=== PATIENT | male | born 1985 | race Caucasian/White ===

== ENCOUNTER 2017-10-05 10:50 | Emergency (ER) | payer OTHER, BC ==
[2017-10-05] MEDS ORDERED: ONDANSETRON HCL INJ/PF 4 MG/2 ML SDV IV ONE (11:43)
--- NOTE | 2017-10-05 11:43 | ER Document Report ---
ED Medical Screen (RME) - General Chief Complaint: Vomiting Stated Complaint: ABDOMINAL PAIN Time Seen by Provider: 10/05/17 11:40 Notes: I entered the examining room and the patient was laying on the floor. He says that his abdomen hurts too much to sit up in the wheelchair. He has been having pain in his abdomen for the past couple of months, daily basis, comes and goes. He is under the care of the OR clinic and has been diagnosed with IBS and has had 2 surgeries for rectal prolapse. It is often located in the same area as today, in the right lower abdomen. He is also vomiting 3 or 4 times. Says he has had blood in his vomitus which is new for him. Says he is feeling very weak and cannot stand because of the weakness. Last bowel movement was 6 PM last evening. Says he has had a fever as well. Also complaining of an extreme headache. Patient has a history of TBI and a stent placed in a brain aneurysm. Also diagnosed with anxiety, depression, and PTSD. Abdomen examined while patient laying on his left side on the floor. I do not detect any specific severe tenderness anywhere in his abdomen. TRAVEL OUTSIDE OF THE [place] IN LAST 30 DAYS: No - Related Data Allergies/Adverse Reactions: almond oil [[place] Oil] Allergy (Verified 10/05/17 10:51) Past Medical History Renal/ Medical History: Denies: Hx Peritoneal Dialysis Past Surgical History: Reports: Hx Neurologic Surgery - Stent placed, Hx Orthopedic Surgery - left ankle, thumb, Hx Rectal Surgery - August 2014 - Immunizations Hx Diphtheria, Pertussis, Tetanus Vaccination: Yes Physical Exam - Vital signs Vitals: Temp Pulse Resp BP Pulse Ox 98.6 F 107 H 22 H 113/64 100 10/05/17 10:57 10/05/17 10:57 10/05/17 10:57 10/05/17 10:57 10/05/17 10:57 Course - Vital Signs Vital signs: Temp Pulse Resp BP Pulse Ox 98.6 F 107 H 22 H 113/64 100 10/05/17 10:57 10/05/17 10:57 10/05/17 10:57 10/05/17 10:57 10/05/17 10:57 Doctor's Discharge - Discharge Referrals: [facility] LOPEZ, [facility] [Primary Care Provider] - Follow up as needed
[2017-10-05] MEDS: NORMAL SALINE 1000 ML 1,000 ML IV PRN ×2 (12:14→12:15)
[2017-10-05] MEDS ORDERED: ACETAMINOPHEN 325 MG TABLET ONE (12:23)
[2017-10-05] MEDS ORDERED: ACETAMINOPHEN 325 MG TABLET PO ONE ×2 (12:28→15:02)
[2017-10-05] MEDS ORDERED: MORPHINE SULFATE 10 MG/ML INJ IV ONE (12:36)
[2017-10-05 12:41] LABS: ABSOLUTE LYMPHOCYTES (AUTO) 0.4 10^3/uL (0.5-4.7); ABSOLUTE MONOCYTES (AUTO) 0.7 10^3/uL (0.1-1.4); ABSOLUTE NEUT (AUTO) 6.6 10^3/uL (1.7-8.2); BASOPHILS % (AUTO) 0.3 % (0-2); EOSINOPHILS % (AUTO) 0.6 % (0-6); HEMATOCRIT 42.3 % (37.9-51.0); HEMOGLOBIN 14.7 g/dL (13.5-17.0); LYMPHOCYTES % (AUTO) 5.7 % (13-45); MEAN CORPUSCULAR HEMOGLOBIN 30.9 pg (27.0-33.4); MEAN CORPUSCULAR HGB CONC 34.7 g/dL (32.0-36.0); MEAN CORPUSCULAR VOLUME 89 fl (80-97); MONOCYTES % (AUTO) 8.9 % (3-13); PLATELET COUNT 211 10^3/uL (150-450); RED BLOOD COUNT 4.74 10^6/uL (4.35-5.55); RED CELL DISTRIBUTION WIDTH 12.7 % (11.5-14.0); SEGMENTED NEUTROPHILS % (AUTO) 84.5 % (42-78); TOTAL CELLS COUNTED % (AUTO) 100 %; WHITE BLOOD COUNT 7.8 10^3/uL (4.0-10.5)
[2017-10-05 13:02] LABS: ALANINE AMINOTRANSFERASE 49 U/L (21-72); ALBUMIN 4.2 g/dL (3.5-5.0); ALKALINE PHOSPHATASE 87 U/L (38-126); ANION GAP 14 (5-19); ASPARTATE AMINO TRANSFERASE 25 U/L (17-59); BILIRUBIN,DIRECT 0.2 mg/dL (0.0-0.4); BILIRUBIN,TOTAL 0.5 mg/dL (0.2-1.3); BLOOD UREA NITROGEN 22 mg/dL (7-20); CALCIUM 9.6 mg/dL (8.4-10.2); CARBON DIOXIDE 22 mmol/L (22-30); CHLORIDE 105 mmol/L (98-107); GLUCOSE 121 mg/dL (75-110); LIPASE 73.7 U/L (23-300); POTASSIUM 4.3 mmol/L (3.6-5.0); SODIUM 140.8 mmol/L (137-145)
--- NOTE | 2017-10-05 13:10 | ER Document Report ---
ED GI/ - General Chief Complaint: Vomiting Stated Complaint: ABDOMINAL PAIN Time Seen by Provider: 10/05/17 11:40 Notes: Patient is a 32-year-old male with past medical history of rectal prolapse repair 3, last performed in [place] 3 years ago, as well as around 10 years of some irritable bowel syndrome diagnosed at the [facility] who presents today with the onset last night of some body aches, temperature 101, and some abdominal pain. This morning the patient had multiple bouts of nonbilious vomiting. There was some blood specks in the vomit. No obvious black or bloody stools. Patient states the pain is now mostly to the right lower quadrant where it normally is located. Patient denies any aggravating or relieving factors. He denies any radiation. He denies any dysuria or testicular pain. Patient did take Tylenol this morning. TRAVEL OUTSIDE OF THE [place] IN LAST 30 DAYS: No - HPI Patient complains to provider of: Abdominal pain, Other - See above Timing/Duration: Gradual Quality of pain: Achy Severity in ED: Moderate Pain Level: 2 Location: Other - See above Sexual history: Active Associated symptoms: Other - See above Exacerbated by: Denies Relieved by: Denies Similar symptoms previously: Yes Recently seen / treated by doctor: Yes - Related Data Allergies/Adverse Reactions: almond oil [[place] Oil] Allergy (Verified 10/05/17 10:51) Past Medical History - General Information source: Patient - Social History Smoking Status: Never Smoker Cigarette use (# per day): No Chew tobacco use (# tins/day): No Smoking Education Provided: No Frequency of alcohol use: None Family History: Reviewed & Not Pertinent Patient has suicidal ideation: No Patient has homicidal ideation: No Renal/ Medical History: Denies: Hx Peritoneal Dialysis Past Surgical History: Reports: Hx Neurologic Surgery - Stent placed, Hx Orthopedic Surgery - left ankle, thumb, Hx Rectal Surgery - August 2014 - Immunizations Hx Diphtheria, Pertussis, Tetanus Vaccination: Yes Review of Systems - Review of Systems Constitutional: Fever EENT: denies: Eye discharge, Nose discharge Cardiovascular: Syncope, Dizziness. denies: Chest pain, Palpitations Respiratory: denies: Short of breath Gastrointestinal: denies: Vomiting Genitourinary: denies: Dysuria Musculoskeletal: denies: Leg swelling Skin: Other - no hives. denies: Rash Neurological/Psychological: Other - no slurred speech -: Yes All other systems reviewed and negative Physical Exam - Vital signs Vitals: Temp Pulse Resp BP Pulse Ox 98.6 F 107 H 22 H 113/64 100 10/05/17 10:57 10/05/17 10:57 10/05/17 10:57 10/05/17 10:57 10/05/17 10:57 Notes: Reviewed vital signs and nursing note as charted by RN. CONSTITUTIONAL: Alert and oriented and responds appropriately to questions. Well -appearing; well-nourished HEAD: Normocephalic; atraumatic EYES: PERRL; sclerae non-icteric CARD: Regular rate and rhythm; no murmurs RESP: Normal chest excursion without splinting or tachypnea; breath sounds clear and equal bilaterally ABD/GI: Normal bowel sounds; non-distended; soft, tender to palpation mostly to the lower quadrant of the right abdomen but no rebound or guarding. No palpable masses GI/: Patient has no testicular pain or swelling, no inguinal masses present. The examination shows no obvious gross blood. Hemoccult has been sent. I do not detect any obvious palpable prolapse present BACK: The back appears normal and is non-tender to palpation, there is no CVA tenderness EXT: No edema SKIN: No acute lesions noted NEURO: Moves all extremities equally; Motor and sensory function intact PSYCH: The patient's mood and manner are appropriate. Grooming and personal hygiene are appropriate. Course - Re-evaluation Re-evalutation: 10/05/17 13:09 Given the above history and physical examination in this complicated medical patient, I will order an influenza, basic labs, x-ray of the chest given hematemesis as well as a CT scan of the abdomen and pelvis to evaluate for any abdominal pathology. A liter of fluid and pain medications have been provided. 10/05/17 14:07 Labs and Hemoccult is recorded. X-ray as recorded. Hemoccult is negative. CT scan of the abdomen and pelvis shows no acute abnormalities. Influenza is negative. 10/05/17 14:14 Patient is sleeping in no acute distress. Examination is improved when awoken. Given the above history and physical examination, with laboratory and imaging as recorded, we will have the patient follow-up with his gastroenterology/[facility] specialist and provide a course of Phenergan. Strict return precautions have been explained. - Vital Signs Vital signs: Temp Pulse Resp BP Pulse Ox 98.6 F 107 H 22 H 113/64 100 10/05/17 10:57 10/05/17 10:57 10/05/17 10:57 10/05/17 10:57 10/05/17 10:57 - Laboratory Result Diagrams: 10/05/17 12:13 10/05/17 12:13 Laboratory results interpreted by me: 10/05/17 10/05/17 12:13 12:13 Seg Neutrophils % 84.5 H Lymphocytes % 5.7 L Absolute Lymphocytes 0.4 L BUN 22 H Glucose 121 H Discharge - Discharge Clinical Impression: Vomiting and diarrhea Abdominal pain Qualifiers: Abdominal location: right lower quadrant Qualified Code(s): R10.31 - Right lower quadrant pain Hematemesis Qualifiers: Nausea presence: with nausea Qualified Code(s): K92.0 - Hematemesis Fever Qualifiers: Fever type: unspecified Qualified Code(s): R50.9 - Fever, unspecified Condition: Good Disposition: HOME, SELF-CARE Prescriptions: Promethazine HCl [Phenergan 25 mg Tablet] 25 mg PO Q6H PRN #15 tablet PRN Reason: Referrals: [facility]OPE[facility] [Primary Care Provider] - Follow up as needed
[2017-10-05] MEDS ORDERED: PROMETHAZINE HCL INJ 25 MG/1 ML VIAL IV ONE (13:27)
--- NOTE | 2017-10-05 13:29 | RADIOLOGY REPORT (SQ) ---
EXAM DESCRIPTION: CHEST 2 VIEWS COMPLETED DATE/TIME: 10/05/2017 1:15 pm REASON FOR STUDY: 13hw; vomiting COMPARISON: None. EXAM PARAMETERS: NUMBER OF VIEWS: two views TECHNIQUE: Digital Frontal and Lateral radiographic views of the chest acquired. RADIATION DOSE: NA LIMITATIONS: none FINDINGS: LUNGS AND PLEURA: No opacities, masses or pneumothorax. No pleural effusion. MEDIASTINUM AND HILAR STRUCTURES: No masses or contour abnormalities. HEART AND VASCULAR STRUCTURES: Heart normal size. No evidence for failure. BONES: No acute findings. HARDWARE: None in the chest. OTHER: No other significant finding. IMPRESSION: NO ACUTE RADIOGRAPHIC FINDING IN THE CHEST. TECHNICAL DOCUMENTATION: JOB ID: [id number] [employer]- All Rights Reserved Reading location - IP/workstation name: [email or web address]
--- NOTE | 2017-10-05 13:41 | RADIOLOGY REPORT (SQ) ---
EXAM DESCRIPTION: CT ABD/PELVIS WITH IV ONLY COMPLETED DATE/TIME: 10/05/2017 1:10 pm REASON FOR STUDY: 13Hw; abdominal pain; h/o rectal prolapse COMPARISON: None. TECHNIQUE: CT scan of the abdomen and pelvis performed using helical scanning technique with dynamic intravenous contrast injection. No oral contrast. Images reviewed with lung, soft tissue, and bone windows. Reconstructed coronal and sagittal MPR images reviewed. Delayed images for evaluation of the urinary system also acquired. All images stored on PACS. All CT scanners at this facility use dose modulation, iterative reconstruction, and/or weight based d osing when appropriate to reduce radiation dose to as low as reasonably achievable (ALARA). [facility]: Dose Right [facility]: CareDose [facility]: Dose Right [facility]: Teradose 4D [facility]: [employer] CONTRAST TYPE AND DOSE: Not recorded by technologist. RENAL FUNCTION: None required. The patient is less than 50 years old. RADIATION DOSE: CT Rad equipment meets quality standard of care and radiation dose reduction techniq ues were employed. CTDIvol: 6.4 - 8.9 mGy. DLP: 841 mGy-cm.. LIMITATIONS: None. FINDINGS: LOWER CHEST: No significant findings. No nodules or infiltrates. LIVER: 3 low-density lesions, 1 in the medial segment of the left lobe, 2 in the right lobe measuring up to about 1.5 cm. Not visualized on delayed imaging. Liver MRI followup is recommended. SPLEEN: Normal size. No focal lesions. PANCREAS: No masses. No significant calcifications. No adjacent inflammation or peripancreatic fluid collections. Pancreatic duct not dilated. GALLBLADDER: No identified stones by CT criteria. No inflammatory changes to suggest cholecystitis. ADRENAL GLANDS: No significant masses or asymmetry. RIGHT KIDNEY AND URETER: Cortical cyst. No solid masses. No significant calcifications. No hydro nephrosis or hydroureter. LEFT KIDNEY AND URETER: No solid masses. No significant calcifications. No hydronephrosis or hydr oureter. AORTA AND VESSELS: No aneurysm. No dissection. Renal arteries, SMA, celiac without stenosis. RETROPERITONEUM: No retroperitoneal adenopathy, hemorrhage or masses. BOWEL AND PERITONEAL CAVITY: No masses or inflammatory changes. No free fluid or peritoneal masses. APPENDIX: Not visualized. PELVIS: No mass. No free fluid. Normal bladder. ABDOMINAL WALL: No masses. No hernias. BONES: No significant or acute findings. OTHER: No other significant finding. IMPRESSION: No acute findings. Low-density lesions in the liver, probably benign hemangiomas, howev er follow-up recommended. TECHNICAL DOCUMENTATION: JOB ID: [id number] Quality ID # [id number]: Final reports with documentation of one or more dose reduction techniques (e.g., Au tomated exposure control, adjustment of the mA and/or kV according to patient size, use of iterative reconstruction technique) 2010 [employer]- All Rights Reserved Reading location - IP/workstation name: [email or web address]
[2017-10-05 14:00] LABS: A TYPE INFLUENZA AG NEGATIVE (NEGATIVE); B INFLUENZA AG NEGATIVE (NEGATIVE)
[2017-10-05] MEDS ORDERED: NORMAL SALINE 1000 ML 1,000 ML IV ONE (14:54)
[2017-10-05 16:00] LABS: APPEARANCE,URINE CLEAR; BILIRUBIN,URINE NEGATIVE (NEGATIVE); COLOR,URINE YELLOW; GLUCOSE, URINE NEGATIVE (NEGATIVE); KETONES,URINE 20 mg/dL (NEGATIVE); LEUKOCYTE ESTERASE,URINE NEGATIVE (NEGATIVE); NITRITE,URINE NEGATIVE (NEGATIVE); PROTEIN,URINE NEGATIVE (NEGATIVE); URINE SPECIFIC GRAVITY 1.046; UROBILINOGEN,URINE NEGATIVE mg/dL (<2.0)
[2017-10-05 18:46] VITALS: BP 103/50
== END 2017-10-05 17:40 | disposition home or self-care (01) ==
LOC: ER 10:50
DX: K92.0 Hematemesis (principal); R19.7 Diarrhea, unspecified; R10.31 Right lower quadrant pain; R50.9 Fever, unspecified; M79.1 Myalgia; K58.9 Irritable bowel syndrome, unspecified; Z98.890 Other specified postprocedural states
CPT/HCPCS: 99284; 96361; 96374; 96375; 36415; 87070; 87880; 83690; 85025; 82272; 80053; 81001; 87804; 71046; 74177; J2270; J2550; J2405; J7030

== ENCOUNTER 2020-07-01 19:28 | Emergency (ER) | payer OTHER, BC ==
[2020-07-01] MEDS ORDERED: IBUPROFEN 600 MG TABLET PO ONE (19:38)
[2020-07-01] MEDS ORDERED: ACETAMINOPHEN 325 MG TABLET PO ONE (19:38)
--- NOTE | 2020-07-01 19:40 | ER Document Report ---
HPI - HPI Time Seen by Provider: 07/01/20 19:34 Context: Patient is a 35-year-old male who presents emergency department with a chief complaint of right hand pain. Patient was punching a punching bag about 4 to 5 hours ago and felt a pop when he punched that. States that the pain got progres sively worse. He did not take any medicine for pain. He is not able to extend his right fourth and fifth digits. He is right-handed. - ROS Systems Reviewed and Negative: Yes All other systems reviewed and negative - CONSTITUTIONAL Constitutional: DENIES: Fever, Chills - CARDIOVASCULAR Cardiovascular: DENIES: Chest pain - RESPIRATORY Respiratory: DENIES: Trouble Breathing, Coughing - GASTROINTESTINAL Gastrointestinal: DENIES: Abdominal Pain, Nausea, Patient vomiting - MUSCULOSKELETAL Musculoskeletal: REPORTS: Extremity pain - See HPI., Swelling - See HPI. - DERM Skin Color: Normal Skin Problems: None, Bruise - Right hand Past Medical History - General Information source: Patient - Social History Smoking Status: Unknown if Ever Smoked Family History: Reviewed & Not Pertinent Renal/ Medical History: Denies: Hx Peritoneal Dialysis Past Surgical History: Reports: Hx Neurologic Surgery - Stent placed, Hx Ortho pedic Surgery - left ankle, thumb, Hx Rectal Surgery - August 2014 - Immunizations Hx Diphtheria, Pertussis, Tetanus Vaccination: Yes Vertical Provider Document - CONSTITUTIONAL Agree With Documented VS: Yes Exam Limitations: No Limitations General Appearance: No Apparent Distress - INFECTION CONTROL TRAVEL OUTSIDE OF THE [place] IN LAST 30 DAYS: No - HEENT HEENT: Atraumatic, Normocephalic, PERRLA - RESPIRATORY Respiratory: No Respiratory Distress - CARDIOVASCULAR Cardiovascular: Regular Rate, Regular Rhythm Pulses: Normal: Radial - MUSCULOSKELETAL/EXTREMETIES Musculoskeletal/Extremeties: Tender - Right hand, Edema - Right hand at fourth and fifth metacarpal area, Eccymosis - Right hand at fourth and fifth metacarpal area. negative: FROM - Decreased at right fourth and fifth digits - NEURO Level of Consciousness: Awake, Alert, Appropriate Motor/Sensory: No Motor Deficit, No Sensory Deficit - DERM Integumentary: Warm, Dry, No Rash Course - Re-evaluation Re-evalutation: 07/01/20 20:28 There is a fracture at the 5t metacarpal, consistent with a boxer's fracture. No open skin. Verbal instructions to not punch inanimate objects. Verbalizes understanding. Will also place in ulnar gutter splint. Capillary refill less than 3 seconds. Radial pulse 2+. No vascular compromise noted. Follow-up precautions were given. Verbal discharge instructions were given to the patient. They verbalized understanding. They are stable for discharge. - Vital Signs Vital signs: Temp Pulse Resp BP Pulse Ox 98.5 F 67 16 126/67 H 99 07/01/20 19:34 07/01/20 19:34 07/01/20 19:34 07/01/20 19:34 07/01/20 19:34 - Laboratory Results Critical Laboratory Results Reviewed: No Critical Results - Radiology Results Critical Radiology Results Reviewed: No Critical Results Procedures - Immobilization Right Hand Pre-Proc Neuro Vasc Exam: Normal Immobilizer type: Ulnar Performed by: PCT Post-Proc Neuro Vasc Exam: Normal, Unchanged from pre-exam Alignment checked and good: Yes Discharge - Discharge Clinical Impression: Boxers fracture Qualifiers: Encounter type: initial encounter Fracture type: closed Qualified Code(s): S62.339A - Displaced fracture of neck of unspecified metacarpal bone, initial encounter for closed fracture Condition: Stable Disposition: HOME, SELF-CARE Additional Instructions: You were seen today in the emergency department for right hand pain. Follow-up with orthopedics in regards to this visit. Keep the splint on. Keep the splint dry if you are to shower, cover the splint with a trash bag and put a rubber band around your arm. Ibuprofen 600 mg every 6 hours and acetaminophen 1000 mg every 6 hours for your pain/swelling. Take these medications [id number]. Referrals: [facility] LOPE[facility] [NO LOCAL MD] - Follow up as needed ROWDY JAUREGUI JR, DO [ACTIVE PROVISIONAL STAFF] - 07/03/20
[2020-07-01 20:44] VITALS: BP 102/84
--- NOTE | 2020-07-01 21:02 | RADIOLOGY REPORT (SQ) ---
EXAM DESCRIPTION: X-ray right hand 3 views COMPLETED DATE/TME: 07/01/2020 20:00 CLINICAL HISTORY: 35 years, Male, hand pain after punching a punching bag COMPARISON: None. NUMBER OF VIEWS: TECHNIQUE: LIMITATIONS: None. FINDINGS: There is acute fracture involving the neck of the fifth metacarpal, with lateral and volar angulation. There is a possible old fracture involving the base of the proximal phalanx of the index finger. Mineralization of bone appears normal. IMPRESSION: Acute fracture of the fifth metacarpal. copyright 2010 [employer]- All Rights Reserved
== END 2020-07-01 20:43 | disposition home or self-care (01) ==
LOC: ER 19:28
DX: S62.339A Displaced fracture of neck of unspecified metacarpal bone, initial encounter for closed fracture (principal); W21.89XA Striking against or struck by other sports equipment, initial encounter
CPT/HCPCS: 99283